=== PATIENT | female | born 1940 | race Caucasian/White ===

== ENCOUNTER 2016-10-05 08:10 | Day surgery (SDC) | payer OTHER, BC ==
[2016-10-03 14:36] VITALS: BMI 32.9
[2016-10-05] MEDS ORDERED: PROPOFOL 20 ML ONE ×2 (08:33)
[2016-10-05 10:43] VITALS: BP 112/65; PULSE 61; TEMP 98
== END 2016-10-05 10:45 | disposition home or self-care (01) ==
LOC: FASU 08:10
PROVIDERS: ATTEND Internal Medicine Gastroenterology
PROC: 0DJD8ZZ Inspection of Lower Intestinal Tract, Via Natural or Artificial Opening Endoscopic (ICD-10-PCS; principal; 2016-10-05 09:36)
DX: Z12.11 Encounter for screening for malignant neoplasm of colon (principal)

== ENCOUNTER 2016-10-12 18:12 | Emergency (ER) | payer OTHER, BC ==
[2016-10-12 18:26] VITALS: TEMP 98; BMI 32.8
--- NOTE | 2016-10-12 18:41 | PDOC ---
History of Present Illness <Larry Irby - Last Filed: 10/12/16 18:41> - History of Present Illness Initial Comments: 10/12/16 18:46 The patient is a 76 year old female, with a significant past medical history of hypertension, diastolic malfunction diagnosed summer 2015, and hypercholesterolemia, who presents to the emergency department with feeling faint just 15 minutes into shopping at [employer] earlier today. The patient states she usually gets faint in [employer] but was concerned when she had to sit after just 15 minutes because she felt she would faint if she did not. She reports going home from [employer] and noting her blood pressure to be low, but denies taking note of the values. She reports taking an anxiety medication at the house prior to arrival, but denies improvement of her symptoms. She reports a couple of episodes of nonbloody diarrhea today, but denies any abdominal discomfort. She states she has been under a great deal of stress at home lately because her just recently had a stroke and her schizophrenic son has not been taking his medications making daily activities very stressful. The patient states she spoke to the "crisis control" who will be coming to her house tomorrow to see her son. She denies chest pain, shortness of breath, headache, blurred vision, and dizziness. She denies fever, chills, nausea, vomit, and constipation. She denies dysuria, frequency, urgency and hematuria. Social history: Denies toxic habits. Live home with and son. PCP - Dr. Yoav Voss <Paola Nolen - Last Filed: 10/12/16 19:09> - General Chief Complaint: Lightheaded Stated Complaint: LIGHTHEADED Time Seen by Provider: 10/12/16 18:41 Past History - Past Medical History Anemia: No Asthma: No Cancer: No Cardiac Disorders: Yes (diastolic dysfunction) CVA: No COPD: No CHF: No Dementia: No Diabetes: No (pre-diabetic) GI Disorders: No Disorders: No HTN: Yes Hypercholesterolemia: Yes Liver Disease: No Seizures: No Thyroid Disease: No - Surgical History Abdominal Surgery: Yes Appendectomy: Yes Cardiac Surgery: No Cholecystectomy: No Lung Surgery: No Neurologic Surgery: No Orthopedic Surgery: Yes (L partial knee replacement 2014) - Psycho/Social/Smoking Cessation Hx Anxiety: No Suicidal Ideation: No Smoking History: Never smoked Have you smoked in the past 12 months: No Hx Alcohol Use: Yes (1/2 glass wine 3 times a week) Drug/Substance Use Hx: No Substance Use Type: None <Larry Irby - Last Filed: 10/12/16 18:41> <Paola Nolen - Last Filed: 10/12/16 19:09> - Past Medical History Allergies/Adverse Reactions: Allergies Allergy/AdvReac Type Severity Reaction Status Date / Time niacin Allergy Verified 10/03/16 14:22 Home Medications: Ambulatory Orders Aspirin [ASA -] 81 mg PO HS 10/03/16 Cholecalciferol (Vitamin D3) [Vitamin D3 -] 1,000 units PO HS 10/03/16 Furosemide [Lasix] 20 mg PO ASDIR PRN 10/03/16 Simvastatin [Zocor -] 10 mg PO HS 10/03/16 Clonazepam [Klonopin -] 0.5 mg PO BID PRN 10/12/16 Review of Systems - Review of Systems Able to Perform ROS?: Yes Comments:: 10/12/16 18:46 GENERAL/CONSTITUTIONAL: (+) lightheadedness. No fever or chills. No weakness. HEAD, EYES, EARS, NOSE AND THROAT: No change in vision. No ear pain or discharge. No sore throat. CARDIOVASCULAR: No chest pain or shortness of breath. RESPIRATORY: No cough, wheezing, or hemoptysis. GASTROINTESTINAL: No nausea, vomiting, diarrhea or constipation. GENITOURINARY: No dysuria, frequency, or change in urination. MUSCULOSKELETAL: No joint or muscle swelling or pain. No neck or back pain. SKIN: No rash NEUROLOGIC: No headache, vertigo, loss of consciousness, or change in strength/ sensation. ENDOCRINE: No increased thirst. No abnormal weight change. HEMATOLOGIC/LYMPHATIC: No anemia, easy bleeding, or history of blood clots. ALLERGIC/IMMUNOLOGIC: No hives or skin allergy. <Paola Nolen - Last Filed: 10/12/16 19:09> *Physical Exam - Vital Signs Last Vital Signs Temp Pulse Resp BP Pulse Ox 98.0 F 75 16 183/94 96 10/12/16 18:17 10/12/16 18:17 10/12/16 18:17 10/12/16 18:17 10/12/16 18:17 <Larry Irby - Last Filed: 10/12/16 18:41> - Vital Signs Last Vital Signs Temp Pulse Resp BP Pulse Ox 98.0 F 75 16 183/94 96 10/12/16 18:17 10/12/16 18:17 10/12/16 18:17 10/12/16 18:17 10/12/16 18:17 - Physical Exam Comments: 10/12/16 18:47 GENERAL: Awake, alert, and fully oriented, in no acute distress HEAD: No signs of trauma EYES: PERRLA, EOMI, sclera anicteric, conjunctiva clear ENT: Auricles normal inspection, hearing grossly normal, nares patent, oropharynx clear without exudates. Moist mucosa NECK: Normal ROM, supple, no lymphadenopathy, JVD, or masses LUNGS: Breath sounds equal, clear to auscultation bilaterally. No wheezes, and no crackles HEART: Regular rate and rhythm, normal S1 and S2, no murmurs, rubs or gallops ABDOMEN: Soft, nontender, normoactive bowel sounds. No guarding, no rebound. No masses EXTREMITIES: Normal range of motion, no edema. No clubbing or cyanosis. No cords, erythema, or tenderness NEUROLOGICAL: Cranial nerves II through XII grossly intact. Normal speech, normal gait SKIN: Warm, Dry, normal turgor, no rashes or lesions noted. <Paola Nolen - Last Filed: 10/12/16 19:09> ED Treatment Course - LABORATORY CBC & Chemistry Diagram: 10/12/16 18:50 10/12/16 18:50 <Paola Nolen - Last Filed: 10/12/16 19:09> *DC/Admit/Observation/Transfer - Attestations Physician Attestion: 10/12/16 18:41 I, Dr. Larry Irby, attest that this document has been prepared under my direction and personally reviewed by me in its entirety. I further attest, that it accurately reflects all work, treatment, procedures and medical decision -making performed by me. <Larry Irby - Last Filed: 10/12/16 18:41> - Attestations Scribe Attestion: 10/12/16 18:47 Documentation prepared by Paola Nolen, acting as medical psychotherapist for Larry Irby MD <Paola Nolen - Last Filed: 10/12/16 19:09> - Discharge Dispostion Condition at time of disposition: Good - Referrals Referrals: Yoav Voss MD [Primary Care Provider] -
[2016-10-12] MEDS ORDERED: SODIUM CHLORIDE 1,000 ML IV STA (18:48)
[2016-10-12 19:08] LABS: BASOPHIL 1.1 % (0-2.0); EOSINOPHIL 1.6 % (0-4.5); MCH 30.7 pg (25.7-33.7); MCHC 34.3 g/dl (32.0-36.0); MEAN CELL VOLUME 89.4 fl (80-96); MEAN PLT VOLUME 7.3 fl (7.5-11.1); PLATELET COUNT 364 K/MM3 (134-434); RDW 12.5 % (11.6-15.6); WHITE BLOOD COUNT 8.8 K/mm3 (4.0-10.8)
[2016-10-12 19:13] LABS: ALBUMIN 4.1 g/dl (3.5-5.0); ALK PHOS 85 U/L (32-92); ANION GAP 10 (8-16); BILIRUBIN,TOTAL 0.6 mg/dl (0.2-1.0); CALCIUM 9.2 mg/dl (8.4-10.2); CO2 24 mmol/L (22-28); CPK 414 IU/L (26-192); CREATININE 0.8 mg/dl (0.6-1.3); GLUCOSE,RANDOM 110 mg/dl (74-106); SGOT/AST 24 U/L (10-42); SGPT/ALT 20 U/L (10-40)
[2016-10-12 19:21] VITALS: BP 172/89; PULSE 65
[2016-10-12 19:22] LABS: INR 0.98 (0.82-1.09)
[2016-10-12 19:40] LABS: TROPONIN I (DFP) < 0.03 ng/ml (0.03-0.50)
[2016-10-12 20:29] LABS: URINE APPEARANCE Clear; URINE BILIRUBIN Negative (NEGATIVE); URINE GLUCOSE (UA) Negative (NEGATIVE); URINE KETONE Negative (NEGATIVE); URINE NITRITE Negative (NEGATIVE); URINE PROTEIN Negative (NEGATIVE); URINE UROBILINOGEN 0.2 (0.2-1.0)
[2016-10-12 20:30] LABS: URINE BLOOD 1+ (NEGATIVE); URINE COLOR YELLOW; URINE LEUK ESTERASE 2+ (NEGATIVE)
--- NOTE | 2016-10-12 20:34 | PDOC ---
*Physical Exam - Vital Signs Last Vital Signs Temp Pulse Resp BP Pulse Ox 98.0 F 65 16 172/89 96 10/12/16 18:17 10/12/16 19:15 10/12/16 18:17 10/12/16 19:15 10/12/16 18:17 <Laurie Thompson - Last Filed: 10/12/16 20:34> - Vital Signs Last Vital Signs Temp Pulse Resp BP Pulse Ox 98.0 F 65 16 172/89 96 10/12/16 18:17 10/12/16 19:15 10/12/16 18:17 10/12/16 19:15 10/12/16 18:17 <Paola Nolen - Last Filed: 10/12/16 20:37> ED Treatment Course - LABORATORY CBC & Chemistry Diagram: 10/12/16 18:50 10/12/16 18:50 - ADDITIONAL ORDERS Additional order review: Laboratory Results 10/12/16 10/12/16 10/12/16 20:10 18:50 18:50 INR 0.98 Sodium 138 Potassium 3.7 Chloride 104 Carbon Dioxide 24 Anion Gap 10 BUN 13 Creatinine 0.8 Creat Clearance w eGFR > 60 Random Glucose 110 H D Calcium 9.2 Total Bilirubin 0.6 AST 24 ALT 20 D Alkaline Phosphatase 85 D Creatine Kinase 414 H Creatine Kinase Index 1.8 CK-MB (CK-2) 7.5 H Troponin I < 0.03 L B-Natriuretic Peptide 266.26 H Total Protein 7.0 Albumin 4.1 Urine Color Yellow Urine Appearance Clear Urine pH 5.0 D Ur Specific [place] <= 1.005 Urine Protein Negative Urine Glucose (UA) Negative Urine Ketones Negative Urine Blood 1+ H Urine Nitrite Negative Urine Bilirubin Negative Urine Urobilinogen 0.2 Ur Leukocyte Esterase 2+ H 10/12/16 18:50 RBC 4.55 MCV 89.4 MCHC 34.3 RDW 12.5 MPV 7.3 L Neutrophils % 67.0 Lymphocytes % 24.0 Monocytes % 6.3 Eosinophils % 1.6 Basophils % 1.1 - Medications Given in the ED: ED Medications Discontinued Medications Generic Name Dose Route Start Last Admin Trade Name Freq PRN Reason Stop Dose Admin Sodium Chloride 1,000 mls @ 1,000 mls/hr 10/12/16 18:48 10/12/16 19:00 Normal Saline - IV 10/12/16 19:47 1,000 mls/hr ASDIR STA Administration <Laurie Thompson - Last Filed: 10/12/16 20:34> - LABORATORY CBC & Chemistry Diagram: 10/12/16 18:50 10/12/16 18:50 - ADDITIONAL ORDERS Additional order review: Laboratory Results 10/12/16 10/12/16 10/12/16 20:10 18:50 18:50 INR 0.98 Sodium 138 Potassium 3.7 Chloride 104 Carbon Dioxide 24 Anion Gap 10 BUN 13 Creatinine 0.8 Creat Clearance w eGFR > 60 Random Glucose 110 H D Calcium 9.2 Total Bilirubin 0.6 AST 24 ALT 20 D Alkaline Phosphatase 85 D Creatine Kinase 414 H Creatine Kinase Index 1.8 CK-MB (CK-2) 7.5 H Troponin I < 0.03 L B-Natriuretic Peptide 266.26 H Total Protein 7.0 Albumin 4.1 Urine Color Yellow Urine Appearance Clear Urine pH 5.0 D Ur Specific [place] <= 1.005 Urine Protein Negative Urine Glucose (UA) Negative Urine Ketones Negative Urine Blood 1+ H Urine Nitrite Negative Urine Bilirubin Negative Urine Urobilinogen 0.2 Ur Leukocyte Esterase 2+ H 10/12/16 18:50 RBC 4.55 MCV 89.4 MCHC 34.3 RDW 12.5 MPV 7.3 L Neutrophils % 67.0 Lymphocytes % 24.0 Monocytes % 6.3 Eosinophils % 1.6 Basophils % 1.1 - RADIOLOGY Radiograph Interpretation: 10/12/16 20:37 CXR was read by Dr. Cantu at 19:27 Impression: No significant interval change or acute lung disease present - Medications Given in the ED: ED Medications Discontinued Medications Generic Name Dose Route Start Last Admin Trade Name Freq PRN Reason Stop Dose Admin Sodium Chloride 1,000 mls @ 1,000 mls/hr 10/12/16 18:48 10/12/16 19:00 Normal Saline - IV 10/12/16 19:47 1,000 mls/hr ASDIR STA Administration <Paola Nolen - Last Filed: 10/12/16 20:37> Medical Decision Making - Medical Decision Making 10/12/16 20:33 Pt signed out by Dr. Irby as presyncope and anxiety, pending labs and discharge home if labs are negative. Labs are within normal limits except for mildly elevated CK. Patient feels improved. Will discharge home with follow up with her PMD. <DonnaLaurie - Last Filed: 10/12/16 20:34> *DC/Admit/Observation/Transfer - Discharge Dispostion Admit: No <Laurie Thompson - Last Filed: 10/12/16 20:34> <Paola Nolen - Last Filed: 10/12/16 20:37> Diagnosis at time of Disposition: Heart palpitations, Dizziness - Discharge Dispostion Condition at time of disposition: Good - Referrals Referrals: Yoav Voss MD [Primary Care Provider] - - Patient Instructions Printed Discharge Instructions: DI for Dizziness-Nonvertigo Additional Instructions: return immediately to the ED for new or worsening symptoms, especially chest pain, shortness of breath or passing out. Make sure that you see your primary care doctor next week. - Post Discharge Activity
[2016-10-12 21:22] LABS: URINE BACTERIA FEW /hpf (NEGATIVE); URINE RBC 0-2 /hpf (0-3)
--- NOTE | 2016-10-13 08:20 | EKG ---
Test Reason : Blood Pressure : / mmHG Vent. Rate : 062 BPM Atrial Rate : 062 BPM P-R Int : 164 ms QRS Dur : 092 ms QT Int : 446 ms P-R-T Axes : 035 -55 022 degrees QTc Int : 452 ms SINUS RHYTHM POSSIBLE LEFT ATRIAL ENLARGEMENT LEFT ANTERIOR FASCICULAR BLOCK POOR R WAVE PROGRESSION ABNORMAL ECG NO PREVIOUS ECGS AVAILABLE Confirmed by BERNARD OLIVAREZ MD ([id number]) on 10/13/2016 8:20:28 AM Referred By: DR SANTA Confirmed By:BERNARD OLIVAREZ MD
== END 2016-10-12 21:01 | disposition home or self-care (01) ==
LOC: FER 18:12
PROC: 3E0337Z Introduction of Electrolytic and Water Balance Substance into Peripheral Vein, Percutaneous Approach (ICD-10-PCS; principal; 2016-10-12)
DX: R00.2 Palpitations (principal); R42 Dizziness and giddiness; I10 Essential (primary) hypertension; E78.00 Pure hypercholesterolemia, unspecified
CPT/HCPCS: 36415; 71010-TC; 80053; 81003; 81015; 82553; 83880; 84484; 85025; 85610; 87086; 93005; 99284-25

== ENCOUNTER 2017-04-04 08:11 | Day surgery (SDC) | payer OTHER, BC ==
[2017-03-27 13:05] VITALS: BMI 32.1
[2017-04-04] MEDS: CYCLOPENTOLATE 2% OPHTH SOLN 2 ML BOTTLE ONE ×3 (09:15→09:25)
[2017-04-04] MEDS: PHENYLEPHRINE 2.5% OPHTH SOLN 15 ML BOTTLE ONE ×3 (09:15→09:25)
[2017-04-04] MEDS: TROPICAMIDE 1% OPHTH SOLN 15 ML BOTTLE ONE ×3 (09:15→09:25)
[2017-04-04] MEDS: CIPROFLOXACIN 0.3% EYE DROPS 5 ML BOTTLE ONE ×3 (09:15→09:25)
[2017-04-04] MEDS ORDERED: MIDAZOLAM HCL 2 MG/2 ML SINGLE DOSE VIAL ONE (10:30)
--- NOTE | 2017-04-04 15:17 | OP ---
DATE OF OPERATION: 04/04/2017 OPERATIVE PROCEDURE: Lens phacoemulsification with posterior chamber intraocular lens placement, right eye. PREOPERATIVE DIAGNOSIS: Visually significant cataract of right eye. POSTOPERATIVE DIAGNOSIS: Visually significant cataract of right eye. SURGEON: Jacob Brewer M.D. ANESTHESIA: MAC PROCEDURE: The patient was brought to the operating room and placed under monitored anesthesia care by Anesthesia. A drop of Tetracaine was then placed over the right eye. The patient was then prepped and draped in the usual sterile manner. A speculum was then placed over the right eye. The eye was then well irrigated with copious amounts of BSS (balanced salt solution). The operating microscope was then moved into position. A paracentesis was performed using a 15 degree blade. At this point 0.5 mL of 1% preservative free-lidocaine was injected into the anterior chamber. Amvisc plus was then injected into the anterior chamber. A clear corneal incision was then formed using a 2.2 mm keratome. A capsulorrhexis was then performed in a continuous circular fashion beginning with a cystotome completed with an Utratas forceps. Hydrodissection was then performed using BSS on a cannula. The phaco probe was then introduced through the corneal wound and the cataract was removed using the phaco chop technique. Approximately 3 seconds of absolute phaco time was used. The remaining cortex was then removed using irrigation and aspiration with an I/A probe. The capsule was then filled with regular Amvisc and the capsule was noted to be intact. A previously selected foldable posterior chamber intraocular lens was then injected into the capsule through the corneal wound using a lens injector. It was then dialed into position using a Sinskey hook. The Amvisc was then removed using irrigation and aspiration. Miostat was then injected through the paracentesis to constrict the pupil. The paracentesis and corneal wound were then hydrated and noted to be water tight. A drop of Maxitrol was then placed over the eye. The speculum was removed and clear shield was taped over the eye. The patient tolerated the procedure well and there were no surgical complications. The patient was asked to follow up in my office the next day. JACOB BREWER M.D. ANA/[id number]
[2017-04-04 16:56] VITALS: BP 118/58; PULSE 74; TEMP 97.5
== END 2017-04-04 12:50 | disposition home or self-care (01) ==
LOC: FASU 08:11
PROVIDERS: ATTEND Ophthalmology
PROC: 08RJ3JZ Replacement of Right Lens with Synthetic Substitute, Percutaneous Approach (ICD-10-PCS; principal; 2017-04-04 10:35)
DX: H26.8 Other specified cataract (principal)

== ENCOUNTER 2021-10-23 11:05 | Emergency (ER) | payer OTHER, BC ==
[2021-10-23] MEDS ORDERED: CEPHALEXIN MONOHYDRATE 500 MG CAPSULE (UD) PO ONE (11:09)
[2021-10-23] MEDS ORDERED: ACETAMINOPHEN 325 MG TABLET (FP) PO ONE (11:09)
[2021-10-23 11:21] VITALS: BP 151/62; PULSE 60; RESP 18; TEMP 98.4; BMI 29.1
[2021-10-23] MEDS ORDERED: ACETAMINOPHEN 325 MG TABLET (FP) ONE (11:25)
[2021-10-23] MEDS ORDERED: CEPHALEXIN MONOHYDRATE 500 MG CAPSULE (UD) ONE (11:26)
== END 2021-10-23 12:08 | disposition home or self-care (01) ==
LOC: FER 11:05
DX: M79.671 Pain in right foot (principal)
CPT/HCPCS: 73630-TC-RT-FY; 99283-25

== ENCOUNTER 2022-01-08 13:30 | Emergency (ER) | payer OTHER, BC ==
[2022-01-08 13:56] VITALS: BP 142/75; PULSE 74; RESP 16; TEMP 98.8; BMI 29.2
[2022-01-08] MEDS ORDERED: ACETAMINOPHEN 325 MG TABLET (FP) PO ONE (13:59)
[2022-01-08] MEDS ORDERED: ACETAMINOPHEN 325 MG TABLET (FP) ONE (14:23)
== END 2022-01-08 16:12 | disposition home or self-care (01) ==
LOC: FER 13:30
DX: M79.674 Pain in right toe(s) (principal)
CPT/HCPCS: 73630-TC-LT; 73630-TC-RT-FY; 99284-25

== ENCOUNTER 2022-10-20 21:35 | Inpatient (IN) | payer OTHER, BC ==
[2022-10-20 23:22] LABS: HEMATOCRIT 40.1 % (32.4-45.2); HEMOGLOBIN 13.4 G/dL (10.7-15.3); MCH 31.8 pg (25.7-33.7); MCHC 33.5 g/dl (32.0-36.0); MEAN CELL VOLUME 94.8 fl (80-96); MEAN PLT VOLUME 7.4 fl (7.5-11.1); PLATELET COUNT 326.3 10^3/uL (134-434); RBC 4.23 10^6/uL (3.60-5.2); RDW 13.8 % (11.6-15.6); WHITE BLOOD COUNT 10.4 10^3/uL (4.0-10.8)
[2022-10-20 23:36] LABS: ALBUMIN 4.1 g/dl (3.4-5.0); BLOOD UREA NITROGEN 13.5 mg/dl (7-18); CALCIUM 8.9 mg/dl (8.5-10.1); CREATININE 0.8 mg/dl (0.6-1.3); MAGNESIUM 1.8 mg/dL (1.8-2.4); PHOSPHOROUS 3.68 (2.5-4.9); POTASSIUM 4.5 mmol/L (3.5-5.1); SGOT/AST 26.3 U/L (15-37); TOT PROT 6.5 g/dl (6.4-8.2)
[2022-10-21 00:43] LABS: BILIRUBIN,TOTAL 0.3 mg/dL (0.2-1)
[2022-10-21] MEDS ORDERED: ACETAMINOPHEN 325 MG TABLET (FP) PO PRN (02:40)
[2022-10-21] MEDS ORDERED: DOCUSATE SODIUM 100 MG CAPSULE (FP) PO PRN (02:40)
[2022-10-21 03:18] LABS: EPI CELLS 15 /uL (0-25.1); HYALINE CASTS 0 /uL (0-3.1); URINE APPEARANCE CLEAR; URINE BACTERIA 12 /uL (0-1359); URINE BILIRUBIN NEGATIVE (NEGATIVE); URINE COLOR YELLOW; URINE GLUCOSE (UA) 2+ (NEGATIVE); URINE KETONE NEGATIVE (NEGATIVE); URINE LEUK ESTERASE TRACE (NEGATIVE); URINE NITRITE NEGATIVE (NEGATIVE); URINE PROTEIN NEGATIVE (NEGATIVE); URINE RBC 17 /uL (0-23.9); URINE WBC 33 /uL (0-25.8)
[2022-10-21 03:45] VITALS: BMI 32.2
[2022-10-21] MEDS: CEFTRIAXONE 1 GM in DEXTROSE 5%-WATER - 50 ML IVPB SCH (09:49)
[2022-10-21] MEDS: ENOXAPARIN NA (PORCINE) 40 MG/0.4 ML DISP.SYRIN SQ SCH (09:50)
[2022-10-21] MEDS: ATORVASTATIN CA 10 MG TABLET (FP) PO SCH (21:12)
[2022-10-21] MEDS: LISINOPRIL 5 MG TABLET PO SCH (21:13)
[2022-10-21] MEDS: CHOLECALCIFEROL (VIT D3) 1,000 UNIT (25 MCG) TABLET PO SCH (21:13)
[2022-10-22] MEDS: ENOXAPARIN NA (PORCINE) 40 MG/0.4 ML DISP.SYRIN SQ SCH (09:38)
[2022-10-22] MEDS: CEFTRIAXONE 1 GM in DEXTROSE 5%-WATER - 50 ML IVPB SCH (09:38)
[2022-10-22 09:48] LABS: ALBUMIN 3.8 g/dl (3.4-5.0); BLOOD UREA NITROGEN 13.9 mg/dl (7-18); CALCIUM 8.8 mg/dl (8.5-10.1); CREATININE 0.6 mg/dl (0.6-1.3); POTASSIUM 4.1 mmol/L (3.5-5.1); SGOT/AST 17.6 U/L (15-37); SGPT/ALT 17.7 U/L (7-52); TOT PROT 5.9 g/dl (6.4-8.2)
[2022-10-22 10:14] LABS: BASO % 0.9 % (0-2.0); EOS % 3.8 % (0-4.5); HEMATOCRIT 36.2 % (32.4-45.2); HEMOGLOBIN 12.2 GM/dL (10.7-15.3); LYMPH % 42.9 % (8-40); MCHC 33.7 g/dl (32.0-36.0); MEAN PLT VOLUME 7.7 fl (7.5-11.1); MONO % 7.6 % (3.8-10.2); NEUT % 44.8 % (42.8-82.8); PLATELET COUNT 314 10^3/uL (134-434); RBC 3.94 M/mm3 (3.60-5.2); RDW 13.8 % (11.6-15.6); WHITE BLOOD COUNT 7.6 K/mm3 (4.0-10.0)
[2022-10-22 12:56] LABS: BILIRUBIN,TOTAL 0.3 mg/dL (0.2-1)
[2022-10-22] MEDS: CHOLECALCIFEROL (VIT D3) 1,000 UNIT (25 MCG) TABLET PO SCH (21:38)
[2022-10-22] MEDS: ATORVASTATIN CA 10 MG TABLET (FP) PO SCH (21:38)
[2022-10-22] MEDS: LISINOPRIL 5 MG TABLET PO SCH (21:38)
[2022-10-22 23:04] VITALS: RESP 19
[2022-10-23] MEDS: CEFTRIAXONE 1 GM in DEXTROSE 5%-WATER - 50 ML IVPB SCH (09:14)
[2022-10-23] MEDS: ENOXAPARIN NA (PORCINE) 40 MG/0.4 ML DISP.SYRIN SQ SCH (09:15)
[2022-10-23 14:43] VITALS: BP 145/62; PULSE 56; TEMP 97.8
== END 2022-10-23 14:44 | disposition home or self-care (01) | DRG 312 ==
LOC: FER 21:35 → FM/S 10-21 02:42 → UNDOADMOB 10-21 02:42 → FER 10-21 03:05 → FM/S 10-22 13:43 → OBSVTOIN 10-22 13:43 → UNDOADMOB 10-22 13:43
PROVIDERS: ADMIT Internal Medicine
DX: R55 Syncope and collapse (principal); I50.32 Chronic diastolic (congestive) heart failure; I11.0 Hypertensive heart disease with heart failure; E78.5 Hyperlipidemia, unspecified; F41.0 Panic disorder [episodic paroxysmal anxiety]
CPT/HCPCS: 36415; 70450-TC; 71045-TC-FY; 80053; 81003; 82550; 82553; 83036; 83735; 83880; 84100; 84439; 84443; 84484; 85025; 85027; 85379; 93005; 93970-TC; 99285-25; G0378